=== PATIENT | female | born 1950 | race Caucasian/White ===

== ENCOUNTER 2016-11-07 13:12 | Inpatient (IN) | payer OTHER, MEDICARE ==
[~2016-11-07] VITALS: Ht 162.6 cm; Wt 41.3 kg
[~2016-11-07 13:12] MED LIST: ACETAMINOPHEN325 MG PO; ASPIR 8181 MG PO; ATIVAN1 MG PO; BROVANA15 MCG/2 M NEB; FLUTICASONE PRO16 GM NS; IPRAT-ALBUT 0.5-3 ML NEB; ISOSORBIDE MONO60 MG PO; LEXAPRO20 MG PO; NICOTINE TRANSD21 MG TD; PRAVACHOL40 MG PO; PREDNISONE20 MG PO; PULMICORT0.5 MG/2 M NEB; TENORMIN50 MG PO; TESSALON PERLE100 MG PO; ZESTRIL10 MG PO
== END 2016-11-10 16:35 | disposition hospice, home (50) | DRG 189 ==
LOC: ER 13:12 → MED 17:29
PROVIDERS: ADMIT Internal Medicine
DX: J96.21 Acute and chronic respiratory failure with hypoxia (principal); J18.9 Pneumonia, unspecified organism; J44.0 Chronic obstructive pulmonary disease with (acute) lower respiratory infection; J44.1 Chronic obstructive pulmonary disease with (acute) exacerbation; E87.0 Hyperosmolality and hypernatremia; Y95 Nosocomial condition; F41.9 Anxiety disorder, unspecified; F32.9 Major depressive disorder, single episode, unspecified; I10 Essential (primary) hypertension; F17.210 Nicotine dependence, cigarettes, uncomplicated; Z99.81 Dependence on supplemental oxygen; Z79.82 Long term (current) use of aspirin; Z79.899 Other long term (current) drug therapy; Z85.038 Personal history of other malignant neoplasm of large intestine; I73.9 Peripheral vascular disease, unspecified; M19.90 Unspecified osteoarthritis, unspecified site; Z90.49 Acquired absence of other specified parts of digestive tract; Z66 Do not resuscitate; E87.6 Hypokalemia; R73.9 Hyperglycemia, unspecified; T38.0X5A Adverse effect of glucocorticoids and synthetic analogues, initial encounter
CPT/HCPCS: 36415; 94664; 97162-GP; 97166; J0696; J1650; J1940; J3370; J7050

== ENCOUNTER 2016-11-07 13:12 | Emergency (ER) | payer OTHER, MEDICARE | END 2016-11-07 17:28 | disposition critical access hospital (66) | LOC: ER 13:12 | DX: J96.20 Acute and chronic respiratory failure, unspecified whether with hypoxia or hypercapnia (principal); J18.9 Pneumonia, unspecified organism; Y95 Nosocomial condition; J44.1 Chronic obstructive pulmonary disease with (acute) exacerbation; F41.9 Anxiety disorder, unspecified; F32.9 Major depressive disorder, single episode, unspecified; I10 Essential (primary) hypertension; F17.210 Nicotine dependence, cigarettes, uncomplicated; Z99.81 Dependence on supplemental oxygen; Z90.49 Acquired absence of other specified parts of digestive tract; Z98.51 Tubal ligation status; Z79.82 Long term (current) use of aspirin; Z79.899 Other long term (current) drug therapy | CPT/HCPCS: 51702; 96365; 96367; 96375 ==